=== PATIENT | female | born 1955 | race Caucasian/White ===

== ENCOUNTER 2017-04-16 14:08 | Emergency (ER) | payer BC ==
[~2017-04-16] VITALS: Ht 157.5 cm; Wt 76.3 kg
[~2017-04-16 14:08] MED LIST: DIAZ-90 PO; IBUP400T22 PO
[2017-04-16 14:34] VITALS: Ht 157.5 cm; Wt 76.3 kg
[2017-04-16 16:00] LABS: URINE BLOOD (Dip) POC Trace-intact (NEGATIVE)
[2017-04-16] MEDS ORDERED: BENAZEPRIL 10 MG TAB PO ONE (16:00)
[2017-04-16] MEDS ORDERED: HYDROCHLOROTHIAZIDE 25 MG TAB PO ONE (16:00)
--- NOTE | 2017-04-16 16:31 | ERD ---
ER Documentation Chief Complaint Chief Complaint Pt here for elevated BP today, stating it was over 200 systolicly. HPI 61-year-old female presents referred from a clinic for elevated blood pressure today. It was over 200 systolic and she was given clonidine 0.2 mg at the clinic. She did have mild bitemporal headache which is improved. Patient denies any chest pain or shortness of breath, weakness or deficits or visual changes. Patient is working nearby and did not take her medication this morning. She lives too far away to retrieve her medication until this evening. She takes losartan hydrochlorothiazide at home. ROS All systems reviewed and are negative except as per history of present illness. Medications Home Meds Active Scripts Diazepam* (Valium*) 5 Mg Tablet, 5 MG PO Q8 Y for MUSCLE SPASMS, #10 TAB Prov:CARLOS ALBERTO SALAS PA-C 01/23/16 Ibuprofen* (Motrin*) 400 Mg Tab, 400 MG PO Q6H Y for PAIN AND OR ELEVATED TEMP, #30 TAB Prov:CARLOS ALBERTO SALAS PA-C 01/23/16 Allergies Allergies: Coded Allergies: No Known Allergies (Verified Allergy, Mild, 07/27/09) PMhx/Soc History of Surgery: Yes ( X 3) Anesthesia Reaction: No Hx Neurological Disorder: No Hx Respiratory Disorders: No Hx Cardiac Disorders: No Hx Psychiatric Problems: No Hx Miscellaneous Medical Probl: No Hx Alcohol Use: No Hx Substance Use: No Hx Tobacco Use: No Physical Exam Vitals Vital Signs Date Time Temp Pulse Resp B/P Pulse Ox O2 Delivery O2 Flow Rate FiO2 04/16/17 15:00 165/94 04/16/17 14:34 97.3 75 18 207/106 100 Physical Exam Const: [] Alert, [id number], pleasant. Head: Atraumatic Eyes: Normal Conjunctiva ENT: Normal External Ears, Nose and Mouth. Neck: Full range of motion..~ No meningismus. Resp: Clear to auscultation bilaterally Cardio: Regular rate and rhythm, no murmurs Abd: Soft, non tender, non distended. Normal bowel sounds Skin: No petechiae or rashes Back: No midline or flank tenderness Ext: No cyanosis, or edema Neur: Awake and alert. No appreciable focal neurologic deficits. Normal gait. Psych: Normal Mood and Affect Results 24 hrs Laboratory Tests Test 04/16/17 15:59 Bedside Urine pH (LAB) 6.5 Bedside Urine Protein (LAB) Negative Bedside Urine Glucose (UA) Negative Bedside Urine Ketones (LAB) Negative Bedside Urine Blood Trace-intact Bedside Urine Nitrite (LAB) Negative Bedside Urine Leukocyte Esterase (L Trace Current Medications Medications (Trade) Dose Ordered Sig/Slade Route PRN Reason Start Time Stop Time Status Last Admin Dose Admin Hydrochlorothiazide (Hydrochlorothiazide) 25 mg ONCE ONCE PO 04/16/17 16:00 04/16/17 16:01 DC 04/16/17 16:00 Benazepril HCl (Lotensin) 10 mg ONCE ONCE PO 04/16/17 16:00 04/16/17 16:01 DC 04/16/17 16:00 Procedures/MDM Patient is trace leukocytes otherwise no acute findings on urine. EKG: Rate/Rhythm: [Normal Sinus Rhythm] rate equals 66 QRS, ST, T-waves: [No changes consistent w/ acute ischemia] Impression: [No evidence of ischemia or arrhythmia].-Normal EKG Patient had improved blood pressure after observation. She was given Lotensin 10 mg and hydrochlorothiazide 25 mg she may have rebound hypertension from clonidine. Patient has no signs or symptoms of hypertensive crisis or endorgan damage. She will be discharged home with instructions to continue her medication as prescribed by her primary doctor. She does return for new or worsening symptoms as directed and aftercare instructions. The patient was stable with no new complaints during the ER course. Clinically, there is no current evidence to suggest meningitis, sepsis, acute abdomen, pneumonia, acute coronary syndrome, pulmonary embolism, or any other emergent condition appearing to require further evaluation or hospitalization. The patient should certainly return for any new or worsening symptoms per the aftercare instructions. They should otherwise follow-up with her primary care doctor for reevaluation this week. Departure Diagnosis: Primary Impression: Hypertension Hypertension type: unspecified Qualified Code: I10 - Hypertension, unspecified type Condition: Stable Patient Instructions: High Blood Pressure (Hypertension) Additional Instructions: Continue medication at home. Examines sakina sims. Cheque otro vez con [place] doctor primario en el proximo back or regresa para mas o nueva simptomas. MANDY SMITH MD Apr 16, 2017 16:31
[2017-04-16 16:38] VITALS: BP 152/81
== END 2017-04-16 17:10 | disposition home or self-care (01) ==
LOC: FTE 14:08
DX: I10 Essential (primary) hypertension (principal)
CPT/HCPCS: 81003; 93005; 99283; Z7610

== ENCOUNTER 2018-03-19 01:08 | Emergency (ER) | END 2018-03-19 02:18 | disposition home or self-care (01) ==